=== PATIENT | female | born 1975 | race Caucasian/White ===

== ENCOUNTER 2019-02-20 12:34 | Outpatient (RCR) | payer MEDICAID, SELFPAY | END 2019-03-19 00:01 | LOC: GILAB 12:34 | PROVIDERS: Family Provider Family Medicine; Visit Provider Internal Medicine | DX: J45.50 Severe persistent asthma, uncomplicated (principal) | CPT/HCPCS: 96372 ×6; G0463; J2357 ×3 ==

== ENCOUNTER 2019-04-23 12:38 | Outpatient (RCR) | payer MEDICAID, SELFPAY ==
[2019-04-04 12:37] VITALS: BP 148/75; PULSE 73; RESP 18; TEMP 36.5; O2SAT 97; BMI 44.9
[2019-04-04] MEDS: omalizumab 150 mg SDV 300 MG SUBCUT (12:47)
[2019-04-23 12:46] VITALS: BP 171/78; PULSE 74; RESP 18; TEMP 36.9; O2SAT 97
[2019-04-23] MEDS: omalizumab 150 mg SDV 300 MG SUBCUT (12:47)
[2019-05-08] MEDS: omalizumab 150 mg SDV 300 MG SUBCUT (12:54)
[2019-05-08 13:00] VITALS: BP 152/72; PULSE 81; RESP 20; TEMP 36.8; O2SAT 97
== END 2019-05-18 23:59 | disposition home or self-care (01) ==
LOC: GILAB 12:38
PROVIDERS: Family Provider Family Medicine; PCP Family Medicine; Visit Provider Internal Medicine
DX: J45.40 Moderate persistent asthma, uncomplicated (principal)
CPT/HCPCS: 96372; J2357

== ENCOUNTER 2019-05-24 12:48 | Outpatient (CLI) | payer MEDICAID, SELFPAY ==
--- NOTE | 2019-05-24 13:20 | PFTS_ITS ---
Date of Study:05/24/2019 Date of Dictation: MECHANICS: Forced vital capacity (FVC) is normal. Forced expiratory volume in one second (FEV1) is normal. FEV1/FVC is normal. FLOW VOLUME LOOP: Normal. LUNG VOLUMES: Total lung capacity (TLC) is normal. Residual volume (RV) is normal. DIFFUSING CAPACITY FOR CARBON MONOXIDE: Normal. INTERPRETATION: The pulmonary function tests are normal. The presence of normal inspiratory capacity in the setting of significantly reduced expiratory reserve volume is suggestive of obesity related changes. Gas exchange (DLCO) is normal. MTDD
== END 2019-05-24 12:49 | disposition home or self-care (01) ==
LOC: RT 12:49
PROVIDERS: Family Provider Family Medicine; PCP Family Medicine; Visit Provider Internal Medicine
DX: J45.50 Severe persistent asthma, uncomplicated (principal)
CPT/HCPCS: 94010; 94726; 94729

== ENCOUNTER 2019-06-05 02:08 | Outpatient (RCR) | payer MEDICAID, SELFPAY ==
[2019-05-24] MEDS: omalizumab 150 mg SDV 300 MG SUBCUT (13:28)
--- NOTE | 2019-05-24 13:30 | PC.NURSE ---
administered 150mg of xolair sq to right and left upper arm. total of 300mg administered.
[2019-05-24 13:33] VITALS: BP 147/91; PULSE 73; RESP 18; TEMP 37.3; O2SAT 98
[2019-06-05 14:12] VITALS: BP 172/81; PULSE 96; RESP 20; TEMP 36.2; O2SAT 97; BMI 44.9
[2019-06-05] MEDS: omalizumab 150 mg SDV 300 MG SUBCUT (14:30)
--- NOTE | 2019-06-05 14:33 | PC.NURSE ---
xolair injection given sub q to right and left upper arms
== END 2019-06-18 23:59 | disposition home or self-care (01) ==
LOC: GILAB 02:08
PROVIDERS: Family Provider Family Medicine; PCP Family Medicine; Visit Provider Internal Medicine
DX: J45.40 Moderate persistent asthma, uncomplicated (principal)
CPT/HCPCS: 80076; 81001; 82306; 82565; 82570; 84156; 85651; 86140; 86160; 86431; 86480; 87077; 87086; 87186; 96372; G0463; J2357

== ENCOUNTER → 2019-06-05 15:53 | Outpatient (BNVA) | payer MEDICAID, SELFPAY | PROVIDERS: Family Provider Family Medicine; PCP Family Medicine; Visit Provider Internal Medicine Rheumatology | DX: M32.9 Systemic lupus erythematosus, unspecified (principal); Z79.899 Other long term (current) drug therapy; M19.90 Unspecified osteoarthritis, unspecified site; M32.19 Other organ or system involvement in systemic lupus erythematosus; R76.8 Other specified abnormal immunological findings in serum; M35.9 Systemic involvement of connective tissue, unspecified; I73.00 Raynaud's syndrome without gangrene; Z71.89 Other specified counseling | CPT/HCPCS: 85025 ==

== ENCOUNTER 2019-06-19 13:02 | Outpatient (CLI) | payer MEDICAID, SELFPAY ==
[2019-06-19 13:10] VITALS: BP 140/91; PULSE 78; RESP 16; TEMP 36.9; O2SAT 98
[2019-06-19] MEDS: omalizumab 150 mg SDV 300 MG SUBCUT (13:27)
[2019-06-19 13:30] VITALS: BP 138/73; TEMP 36.6; O2SAT 98
== END 2019-06-19 13:03 | disposition home or self-care (01) ==
LOC: RHEOACUTE 13:02
PROVIDERS: Family Provider Family Medicine; PCP Family Medicine; Visit Provider Internal Medicine Rheumatology
DX: J45.40 Moderate persistent asthma, uncomplicated (principal)
CPT/HCPCS: 96372; J2357

== ENCOUNTER 2019-07-03 12:36 | Outpatient (CLI) | payer MEDICAID, SELFPAY ==
[2019-07-03 12:49] VITALS: BP 124/75; PULSE 86; RESP 18; TEMP 36.9; O2SAT 98
[2019-07-03] MEDS: omalizumab 150 mg SDV 300 MG SUBCUT (12:58)
[2019-07-03 13:00] VITALS: BP 132/85; PULSE 85; RESP 16; TEMP 36.8; O2SAT 98
== END 2019-07-03 12:37 | disposition home or self-care (01) ==
LOC: RHEOACUTE 12:37
PROVIDERS: Family Provider Family Medicine; PCP Family Medicine; Visit Provider Internal Medicine Rheumatology
DX: J45.50 Severe persistent asthma, uncomplicated (principal)
CPT/HCPCS: 96372; J2357

== ENCOUNTER 2019-07-19 10:49 | Outpatient (CLI) | payer MEDICAID, SELFPAY ==
[2019-07-19 10:54] VITALS: BP 138/86; PULSE 76; TEMP 36.7; O2SAT 98
[2019-07-19] MEDS: omalizumab 150 mg SDV 300 MG SUBCUT (11:01)
[2019-07-19 11:03] VITALS: BP 134/87; PULSE 89; RESP 16
--- NOTE | 2019-07-19 11:04 | PC.NURSE ---
A&O x 4. Denies illness, cough, rash, or wounds. States no changes since last visit.
== END 2019-07-19 10:50 | disposition home or self-care (01) ==
LOC: RHEOACUTE 10:49
PROVIDERS: Family Provider Family Medicine; PCP Family Medicine; Visit Provider Internal Medicine
DX: J45.40 Moderate persistent asthma, uncomplicated (principal)
CPT/HCPCS: 96372; J2357

== ENCOUNTER 2019-08-02 09:53 | Outpatient (CLI) | payer MEDICAID, SELFPAY ==
[2019-08-02 09:30] VITALS: BP 171/102; PULSE 69; RESP 18; TEMP 36.3; O2SAT 98
[2019-08-02] MEDS: omalizumab 150 mg SDV 300 MG SUBCUT (10:40)
== END 2019-08-02 09:54 | disposition home or self-care (01) ==
LOC: OPS 09:55
PROVIDERS: PCP Family Medicine; Visit Provider Internal Medicine
DX: J45.40 Moderate persistent asthma, uncomplicated (principal)
CPT/HCPCS: 96372; J2357

== ENCOUNTER 2019-08-16 11:25 | Outpatient (CLI) | payer MEDICAID, SELFPAY ==
[2019-08-16 11:30] VITALS: BP 180/95; PULSE 71; RESP 18; TEMP 36.3; O2SAT 97
[2019-08-16] MEDS: omalizumab 150 mg SDV 300 MG SUBCUT (11:45)
== END 2019-08-16 11:26 | disposition home or self-care (01) ==
LOC: GILAB 11:28
PROVIDERS: PCP Family Medicine; Visit Provider Student in an Organized Health Care Education/Training Program
DX: J45.40 Moderate persistent asthma, uncomplicated (principal)
CPT/HCPCS: 96372; J2357

== ENCOUNTER 2019-09-11 08:53 | Outpatient (CLI) | payer MEDICAID, SELFPAY ==
[2019-09-11 10:30] VITALS: BP 148/90; PULSE 69; RESP 18; TEMP 36.7; O2SAT 98
[2019-09-11] MEDS: omalizumab 150 mg SDV SUBCUT (10:32)
== END 2019-09-11 08:54 | disposition home or self-care (01) ==
PROVIDERS: PCP Family Medicine; Visit Provider Student in an Organized Health Care Education/Training Program
DX: J45.50 Severe persistent asthma, uncomplicated (principal); J47.9 Bronchiectasis, uncomplicated
CPT/HCPCS: 96372; J2357

== ENCOUNTER 2019-09-25 12:54 | Outpatient (CLI) | payer MEDICAID, SELFPAY ==
[2019-09-25 13:23] VITALS: BP 137/80; PULSE 88; RESP 18; TEMP 37.3; O2SAT 96; BMI 44.9
[2019-09-25] MEDS: omalizumab 150 mg SDV 300 MG SUBCUT (13:27)
[2019-09-25 13:29] LABS: Basophils % 0.4 %; Eosinophils # 0.2 10^3/uL (0.0-0.8); Eosinophils % 2.2 %; Hemoglobin 12.9 g/dL (11.5-15.3); Lymphocytes # 1.9 10^3/uL (0.8-4.8); Lymphocytes % 26.8 %; Mean Corpuscular HGB Conc 30.7 g/dL (30.0-36.0); Mean Corpuscular Hemoglobin 26.2 pg (28.0-34.0); Mean Corpuscular Volume 85.4 fL (81-99); Mean Platelet Volume 9.3 fL (7.4-10.4); Monocytes # 0.4 10^3/uL (0.2-0.9); Monocytes % 5.3 %; Neutrophils # 4.65 10^3/uL (1.8-7.7); Neutrophils % 65.2 %; Nucleated Red Blood Cells % 0 %; Platelet Count 338 10^3/cmm (130-400); Red Blood Count 4.92 10^6/uL (4.1-5.3); Red Cell Distribution Width 12.5 % (12.1-15.1); White Blood Count 7.1 10^3/uL (4.0-10.0)
[2019-09-25 14:00] LABS: Bilirubin Urine Neg (NEGATIVE); Blood Urine Neg (Negative); Glucose Urine UA Norm (Normal); Ketones Urine Negative (Negative); Leukocyte Esterase Urine Negative (Negative); Nitrate Urine Negative (Negative); Protein Urine Neg (Negative); Urine Appearance Clear (CLEAR); Urine Color Yellow (Yellow); Urobilinogen Urine Norm (Negative); pH Urine 5 (5-7)
[2019-09-25 14:01] LABS: Add Urine Culture? No; Bacteria Urine TRACE
[2019-09-25 14:11] LABS: Urine Creatinine 57 mg/dL (28-217); Urine Protein Random 4 mg/dL
[2019-09-25 15:53] LABS: Erythrocyte Sedimentation Rate 27 mm/hr (0-15)
[2019-09-25 23:47] LABS: Alanine Aminotransferase 14 U/L (0-33); Albumin Level 4.5 g/dL (3.5-5.2); Alkaline Phosphatase 82 IU/L (35-105); Aspartate Amino Transferase 14 U/L (0-32); Complement C3 144 mg/dL (90-180); Globulin 2.6 g/dL (1.3-4.6); Glomerular Filtration Rate 78.7 mL/min (90-130); Total Bilirubin 0.2 mg/dL (0.15-1.2); Total Protein 7.1 g/dL (6.6-8.7)
== END 2019-09-25 12:55 | disposition home or self-care (01) ==
PROVIDERS: Internal Medicine Rheumatology; PCP Family Medicine; Visit Provider Student in an Organized Health Care Education/Training Program
DX: J45.50 Severe persistent asthma, uncomplicated (principal); J47.9 Bronchiectasis, uncomplicated
CPT/HCPCS: 36415; 80076; 81001; 82565; 82570; 84156; 85025; 85651; 86140; 86160; 96372

== ENCOUNTER 2019-10-09 11:34 | Outpatient (CLI) | payer MEDICAID, SELFPAY ==
[2019-10-09 13:58] VITALS: BP 134/80; PULSE 72; RESP 18; TEMP 36.2; O2SAT 97
[2019-10-09] MEDS: omalizumab 150 mg SDV 300 MG SUBCUT (13:59)
== END 2019-10-09 11:35 | disposition home or self-care (01) ==
PROVIDERS: PCP Family Medicine; Visit Provider Student in an Organized Health Care Education/Training Program
DX: J45.50 Severe persistent asthma, uncomplicated (principal); J47.9 Bronchiectasis, uncomplicated; M32.19 Other organ or system involvement in systemic lupus erythematosus; Z79.899 Other long term (current) drug therapy; R76.8 Other specified abnormal immunological findings in serum; I73.00 Raynaud's syndrome without gangrene; M19.90 Unspecified osteoarthritis, unspecified site; F17.210 Nicotine dependence, cigarettes, uncomplicated; E55.9 Vitamin D deficiency, unspecified
CPT/HCPCS: 96372; 99214; J2357

== ENCOUNTER 2019-10-23 12:42 | Outpatient (RCR) | payer MEDICAID, SELFPAY ==
[2019-10-23 12:45] VITALS: BP 153/102; PULSE 72; RESP 18; TEMP 36.3; O2SAT 98
[2019-10-23] MEDS: omalizumab 150 mg SDV 300 MG SUBCUT (12:56)
[2019-11-06] MEDS: omalizumab 150 mg SDV 300 MG SUBCUT (12:59)
[2019-11-06 13:45] VITALS: BP 167/91; PULSE 72; RESP 18; TEMP 36.3; O2SAT 98
== END 2019-11-18 23:59 | disposition home or self-care (01) ==
LOC: GILAB 12:42
PROVIDERS: PCP Family Medicine; Visit Provider Internal Medicine Pulmonary Disease
DX: J45.50 Severe persistent asthma, uncomplicated (principal); J47.9 Bronchiectasis, uncomplicated
CPT/HCPCS: 96372; J2357

== ENCOUNTER → 2019-11-06 12:46 | Day surgery (SDC) | payer MEDICAID, SELFPAY | PROVIDERS: PCP Family Medicine; Visit Provider Internal Medicine Pulmonary Disease | DX: J45.50 Severe persistent asthma, uncomplicated (principal); J47.9 Bronchiectasis, uncomplicated | CPT/HCPCS: 96372 ==

== ENCOUNTER 2019-12-18 12:58 | Outpatient (RCR) | payer MEDICAID, SELFPAY ==
[2019-11-20] MEDS: omalizumab 150 mg SDV 300 MG SUBCUT (13:06)
[2019-11-20 13:07] VITALS: BP 145/77; PULSE 74; RESP 18; TEMP 37.5; O2SAT 97
[2019-12-04] MEDS: omalizumab 150 mg SDV 300 MG SUBCUT (13:03)
[2019-12-04 13:04] VITALS: BP 152/81; PULSE 70; RESP 18; TEMP 37.5; O2SAT 97
[2019-12-18] MEDS: omalizumab 150 mg SDV 300 MG SUBCUT (13:00)
[2019-12-18 13:19] VITALS: BP 143/84; PULSE 79; RESP 18; TEMP 35.9; O2SAT 98
== END 2019-12-18 23:59 | disposition home or self-care (01) ==
LOC: GILAB 12:58
PROVIDERS: PCP Family Medicine; Visit Provider Internal Medicine
DX: J45.50 Severe persistent asthma, uncomplicated (principal); J47.9 Bronchiectasis, uncomplicated
CPT/HCPCS: 96372; J2357

== ENCOUNTER 2020-01-15 13:07 | Outpatient (RCR) | payer MEDICAID, SELFPAY ==
[2020-01-01] MEDS: omalizumab 150 mg SDV 300 MG SUBCUT (14:25)
[2020-01-01 15:11] VITALS: BP 155/78; PULSE 73; RESP 18; TEMP 36.2; O2SAT 98
[2020-01-15] MEDS: omalizumab 150 mg SDV 300 MG SUBCUT (13:15)
[2020-01-15 13:20] VITALS: BP 178/74; PULSE 77; RESP 18; TEMP 36.8; O2SAT 97
== END 2020-01-18 23:59 | disposition home or self-care (01) ==
LOC: OPS 13:07
PROVIDERS: PCP Family Medicine; Visit Provider Physician Assistant Medical
DX: J45.50 Severe persistent asthma, uncomplicated (principal); J47.9 Bronchiectasis, uncomplicated
CPT/HCPCS: 96372; J2357

== ENCOUNTER → 2020-01-31 10:03 | Day surgery (SDC) | payer MEDICAID, SELFPAY ==
[2020-01-31] MEDS: omalizumab 150 mg SDV 300 MG SUBCUT (17:42)
== END ==
PROVIDERS: PCP Family Medicine; Visit Provider Internal Medicine
DX: J45.50 Severe persistent asthma, uncomplicated (principal)
CPT/HCPCS: 96372; J2357

== ENCOUNTER → 2020-02-04 15:11 | Outpatient (BNVA) | payer MEDICAID, SELFPAY | PROVIDERS: PCP Family Medicine; Visit Provider Internal Medicine Rheumatology | DX: M32.19 Other organ or system involvement in systemic lupus erythematosus (principal); M19.90 Unspecified osteoarthritis, unspecified site; I73.00 Raynaud's syndrome without gangrene; R76.8 Other specified abnormal immunological findings in serum; Z79.899 Other long term (current) drug therapy; E55.9 Vitamin D deficiency, unspecified; J45.909 Unspecified asthma, uncomplicated; K21.9 Gastro-esophageal reflux disease without esophagitis; Z90.5 Acquired absence of kidney; F17.210 Nicotine dependence, cigarettes, uncomplicated | CPT/HCPCS: 99214 ==

== ENCOUNTER → 2020-02-21 13:39 | Day surgery (SDC) | payer MEDICAID, SELFPAY ==
[2020-02-21 14:20] VITALS: BP 141/86; PULSE 75; RESP 16; TEMP 36.8; O2SAT 97
[2020-02-21] MEDS: omalizumab 150 mg SDV 300 MG SUBCUT (14:25)
[2020-02-21 14:39] LABS: Basophils % 0.3 %; Eosinophils # 0.1 10^3/uL (0.0-0.8); Hematocrit 38.2 % (37.0-47.0); Hemoglobin 12.3 g/dL (11.5-15.3); Lymphocytes # 1.9 10^3/uL (0.8-4.8); Lymphocytes % 22.2 %; Mean Corpuscular HGB Conc 32.2 g/dL (30.0-36.0); Mean Corpuscular Hemoglobin 26.9 pg (28.0-34.0); Mean Corpuscular Volume 83.4 fL (81-99); Mean Platelet Volume 8.9 fL (7.4-10.4); Monocytes # 0.5 10^3/uL (0.2-0.9); Monocytes % 5.9 %; Neutrophils # 6.03 10^3/uL (1.8-7.7); Neutrophils % 70.4 %; Nucleated Red Blood Cells % 0 %; Platelet Count 309 10^3/cmm (130-400); Red Blood Count 4.58 10^6/uL (4.1-5.3); Red Cell Distribution Width 12.8 % (12.1-15.1); White Blood Count 8.6 10^3/uL (4.0-10.0)
[2020-02-21 14:57] LABS: Alanine Aminotransferase 17 U/L (0-33); Albumin Level 3.8 g/dL (3.5-5.2); Alkaline Phosphatase 89 IU/L (35-105); Aspartate Amino Transferase 14 U/L (0-32); C Reactive Protein 6.1 mg/L (0.0-4.9); Globulin 2.7 g/dL (1.3-4.6); Glomerular Filtration Rate 91.8 mL/min (90-130); Total Bilirubin 0.2 mg/dL (0.15-1.2); Total Protein 6.5 g/dL (6.6-8.7)
[2020-02-21 15:23] LABS: Bilirubin Urine Neg (Negative); Blood Urine Neg (Negative); Glucose Urine UA Norm (Normal); Ketones Urine Negative (Negative); Leukocyte Esterase Urine Negative (Negative); Nitrate Urine Negative (Negative); Protein Urine Neg (Negative); Specific Gravity, Urine 1.005 (1.005-1.030); Urine Appearance SL Hazy (CLEAR); Urine Color Yellow (Yellow); Urobilinogen Urine Norm (Negative); pH Urine 7 (5-7)
[2020-02-21 15:52] LABS: Urine Creatinine 88 mg/dL (28-217); Urine Protein Random 6 mg/dL
[2020-02-21 16:06] LABS: Add Urine Culture? No; Bacteria Urine 1+ /hpf; RBC Urine 15-25 /hpf (0-2); Squamous Epithelial Cell Urine 0-4 /hpf (0-5)
[2020-02-21 18:07] LABS: Erythrocyte Sedimentation Rate 21 mm/hr (0-15)
== END ==
PROVIDERS: Internal Medicine Rheumatology; PCP Family Medicine; Visit Provider Internal Medicine
DX: J45.40 Moderate persistent asthma, uncomplicated (principal)
CPT/HCPCS: 36415; 80076; 81001; 82565; 82570; 84156; 85025; 85651; 86140; 96372; J2357

== ENCOUNTER → 2020-03-06 08:12 | Day surgery (SDC) | payer MEDICAID, SELFPAY ==
[2020-03-06] MEDS: omalizumab 150 mg SDV 300 MG SUBCUT (08:30)
[2020-03-06 08:31] VITALS: BP 142/87; PULSE 77; RESP 18; TEMP 36.8; O2SAT 97
== END ==
PROVIDERS: PCP Family Medicine; Visit Provider Internal Medicine
DX: J45.50 Severe persistent asthma, uncomplicated (principal)
CPT/HCPCS: 96372; J2357

== ENCOUNTER 2020-03-20 09:26 | Outpatient (CLI) | payer MEDICAID, SELFPAY ==
[2020-03-20 09:59] VITALS: BP 125/84; PULSE 83; RESP 18; TEMP 36.2; O2SAT 98; BMI 34.7
[2020-03-20] MEDS: omalizumab 150 mg SDV 300 MG SUBCUT (10:05)
== END 2020-03-20 09:27 | disposition home or self-care (01) ==
PROVIDERS: PCP Family Medicine; Visit Provider Internal Medicine
DX: J45.50 Severe persistent asthma, uncomplicated (principal)
CPT/HCPCS: 96372; 96375; J2357

== ENCOUNTER → 2020-04-08 12:49 | Day surgery (SDC) | payer MEDICAID, SELFPAY ==
[2020-04-08 13:25] VITALS: BP 152/89; PULSE 68; RESP 18; TEMP 36.9; O2SAT 98; BMI 44.4
[2020-04-08] MEDS: omalizumab 150 mg SDV 300 MG SUBCUT (13:42)
--- NOTE | 2020-04-08 13:43 | SUR.PREOP ---
Subcutaneous injection give to each outer arm. right and left
== END ==
PROVIDERS: PCP Family Medicine; Visit Provider Internal Medicine
DX: J45.50 Severe persistent asthma, uncomplicated (principal); J47.9 Bronchiectasis, uncomplicated
CPT/HCPCS: 96372; J2357

== ENCOUNTER → 2020-04-24 09:46 | Day surgery (SDC) | payer MEDICAID, SELFPAY ==
[2020-04-24 11:20] VITALS: BP 138/99; PULSE 72; RESP 18; TEMP 36.8; O2SAT 98
[2020-04-24] MEDS: omalizumab 150 mg SDV 300 MG SUBCUT (11:28)
== END ==
PROVIDERS: PCP Family Medicine; Visit Provider Internal Medicine
DX: J45.50 Severe persistent asthma, uncomplicated (principal); J47.9 Bronchiectasis, uncomplicated
CPT/HCPCS: 96372; J2357

== ENCOUNTER → 2020-05-08 08:53 | Day surgery (SDC) | payer MEDICAID, SELFPAY ==
[2020-05-08 09:11] VITALS: BP 159/76; PULSE 73; RESP 18; TEMP 36.3; O2SAT 96
[2020-05-08] MEDS: omalizumab 150 mg SDV 300 MG SUBCUT (09:12)
== END ==
PROVIDERS: PCP Family Medicine; Visit Provider Internal Medicine
DX: J45.50 Severe persistent asthma, uncomplicated (principal); J47.9 Bronchiectasis, uncomplicated
CPT/HCPCS: 96372; J2357

== ENCOUNTER → 2020-05-22 09:03 | Day surgery (SDC) | payer MEDICAID, SELFPAY ==
[2020-05-22] MEDS: omalizumab 150 mg SDV 300 MG SUBCUT (09:22)
[2020-05-22 09:33] VITALS: BP 157/73; PULSE 70; RESP 18; TEMP 36.6; O2SAT 98
== END ==
PROVIDERS: PCP Family Medicine; Visit Provider Internal Medicine
DX: J45.50 Severe persistent asthma, uncomplicated (principal)
CPT/HCPCS: 96372; J2357

== ENCOUNTER → 2020-06-05 09:10 | Day surgery (SDC) | payer MEDICAID, SELFPAY ==
[2020-06-05 09:38] VITALS: BP 144/90; PULSE 65; RESP 18; TEMP 36.8; O2SAT 97
[2020-06-05] MEDS: omalizumab 150 mg SDV 300 MG SUBCUT (09:40)
== END ==
PROVIDERS: PCP Family Medicine; Visit Provider Internal Medicine
DX: J45.50 Severe persistent asthma, uncomplicated (principal); J47.9 Bronchiectasis, uncomplicated
CPT/HCPCS: 96372; J2357

== ENCOUNTER → 2020-06-19 09:56 | Day surgery (SDC) | payer MEDICAID, SELFPAY ==
[2020-06-19] MEDS: omalizumab 150 mg SDV 300 MG SUBCUT (10:08)
[2020-06-19 10:32] VITALS: BP 167/92; PULSE 75; RESP 18; TEMP 36.3; O2SAT 98
== END ==
PROVIDERS: PCP Family Medicine; Visit Provider Internal Medicine
DX: J45.50 Severe persistent asthma, uncomplicated (principal); J47.9 Bronchiectasis, uncomplicated
CPT/HCPCS: 96372; J2357

== ENCOUNTER → 2020-07-03 10:01 | Day surgery (SDC) | payer MEDICAID, SELFPAY ==
[2020-07-03] MEDS: omalizumab 150 mg SDV 300 MG SUBCUT (10:20)
== END ==
PROVIDERS: PCP Family Medicine; Visit Provider Internal Medicine
DX: J45.50 Severe persistent asthma, uncomplicated (principal); J47.9 Bronchiectasis, uncomplicated
CPT/HCPCS: 96372; J2357

== ENCOUNTER → 2020-07-17 09:51 | Day surgery (SDC) | payer MEDICAID, SELFPAY ==
[2020-07-17] MEDS: omalizumab 150 mg SDV 300 MG SUBCUT (10:00)
[2020-07-17 10:03] VITALS: BP 171/97; PULSE 68; RESP 18; TEMP 36.8; O2SAT 97
== END ==
PROVIDERS: PCP Family Medicine; Visit Provider Internal Medicine
DX: J45.50 Severe persistent asthma, uncomplicated (principal); J47.9 Bronchiectasis, uncomplicated
CPT/HCPCS: 96372; J2357

== ENCOUNTER → 2020-07-31 09:18 | Day surgery (SDC) | payer MEDICAID, SELFPAY ==
[2020-07-31 09:20] VITALS: BP 174/95; PULSE 87; RESP 18; TEMP 36.6; O2SAT 97
[2020-07-31] MEDS: omalizumab 150 mg SDV 300 MG SUBCUT (09:23)
== END ==
PROVIDERS: PCP Family Medicine; Visit Provider Internal Medicine
DX: J45.50 Severe persistent asthma, uncomplicated (principal)
CPT/HCPCS: 96372; J2357

== ENCOUNTER → 2020-08-14 09:11 | Day surgery (SDC) | payer MEDICAID, SELFPAY ==
[2020-08-14] MEDS: omalizumab 150 mg SDV 300 MG SUBCUT (09:35)
[2020-08-14 10:10] VITALS: BP 153/88; PULSE 78; RESP 18; O2SAT 96
== END ==
PROVIDERS: PCP Family Medicine; Visit Provider Internal Medicine
DX: J45.50 Severe persistent asthma, uncomplicated (principal); J47.9 Bronchiectasis, uncomplicated
CPT/HCPCS: 96372; J2357

== ENCOUNTER → 2020-08-28 08:44 | Day surgery (SDC) | payer MEDICAID, SELFPAY ==
[2020-08-28 09:08] VITALS: BP 128/76; PULSE 77; RESP 18; TEMP 37.1; O2SAT 97
[2020-08-28] MEDS: omalizumab 150 mg SDV 300 MG SUBCUT (09:08)
== END ==
PROVIDERS: PCP Family Medicine; Visit Provider Internal Medicine
DX: J45.50 Severe persistent asthma, uncomplicated (principal)
CPT/HCPCS: 96372; J2357

== ENCOUNTER → 2020-09-11 08:51 | Day surgery (SDC) | payer MEDICAID, SELFPAY ==
[2020-09-11 09:08] VITALS: BP 161/96; PULSE 68; RESP 18; TEMP 36.7; O2SAT 98
[2020-09-11] MEDS: omalizumab 150 mg SDV SUBCUT ×2 (09:31)
== END ==
PROVIDERS: PCP Family Medicine; Visit Provider Internal Medicine
DX: J45.50 Severe persistent asthma, uncomplicated (principal)
CPT/HCPCS: 96372; J2357

== ENCOUNTER → 2020-09-25 08:46 | Day surgery (SDC) | payer MEDICAID, SELFPAY ==
[2020-09-25 08:55] VITALS: BP 165/94; PULSE 68; RESP 18; TEMP 36; O2SAT 97
[2020-09-25] MEDS: omalizumab 150 mg SDV SUBCUT ×2 (08:57)
== END ==
PROVIDERS: PCP Family Medicine; Visit Provider Internal Medicine
DX: J45.50 Severe persistent asthma, uncomplicated (principal)
CPT/HCPCS: 96372; J2357

== ENCOUNTER → 2020-10-09 08:56 | Day surgery (SDC) | payer MEDICAID, SELFPAY ==
[2020-10-09] MEDS: omalizumab 150 mg SDV SUBCUT ×2 (09:04)
[2020-10-09 09:09] VITALS: BMI 43.5
[2020-10-09 09:10] VITALS: BP 157/87; PULSE 67; RESP 18; TEMP 37.2; O2SAT 98
== END ==
PROVIDERS: PCP Family Medicine; Visit Provider Internal Medicine
DX: J45.50 Severe persistent asthma, uncomplicated (principal)
CPT/HCPCS: 96372; J2357

== ENCOUNTER → 2020-10-23 09:00 | Day surgery (SDC) | payer MEDICAID, SELFPAY ==
[2020-10-23 09:13] VITALS: BP 155/91; PULSE 79; RESP 18; TEMP 36.7; O2SAT 99
[2020-10-23] MEDS: omalizumab 150 mg SDV SUBCUT ×2 (09:40)
== END ==
PROVIDERS: PCP Family Medicine; Visit Provider Internal Medicine
DX: J45.50 Severe persistent asthma, uncomplicated (principal)
CPT/HCPCS: 96372; J2357

== ENCOUNTER → 2020-11-06 09:22 | Day surgery (SDC) | payer MEDICAID, SELFPAY ==
[2020-11-06 09:25] VITALS: BP 171/105; PULSE 74; RESP 18; TEMP 37.1; O2SAT 98
[2020-11-06] MEDS: omalizumab 150 mg SDV SUBCUT ×2 (09:27→09:28)
== END ==
PROVIDERS: PCP Family Medicine; Visit Provider Internal Medicine
DX: J45.50 Severe persistent asthma, uncomplicated (principal)
CPT/HCPCS: 96372; J2357

== ENCOUNTER → 2020-11-20 08:59 | Day surgery (SDC) | payer MEDICAID, SELFPAY ==
[2020-11-20 09:10] VITALS: BP 179/85; PULSE 62; RESP 18; TEMP 36.4; O2SAT 98
[2020-11-20] MEDS: omalizumab 150 mg SDV SUBCUT ×2 (09:16)
== END ==
PROVIDERS: PCP Family Medicine; Visit Provider Internal Medicine
DX: J45.50 Severe persistent asthma, uncomplicated (principal)
CPT/HCPCS: 96372; J2357

== ENCOUNTER → 2020-12-04 09:00 | Day surgery (SDC) | payer MEDICAID, SELFPAY ==
[2020-12-04 09:05] VITALS: BP 162/86; PULSE 70; RESP 18; TEMP 36.2; O2SAT 98
[2020-12-04] MEDS: omalizumab 150 mg SDV SUBCUT ×2 (09:10→09:11)
== END ==
PROVIDERS: PCP Family Medicine; Visit Provider Internal Medicine
DX: J45.50 Severe persistent asthma, uncomplicated (principal)
CPT/HCPCS: 96372; J2357

== ENCOUNTER → 2020-12-18 08:46 | Day surgery (SDC) | payer MEDICAID, SELFPAY ==
[2020-12-18 08:57] VITALS: BMI 41.9
[2020-12-18] MEDS: omalizumab 150 mg SDV SUBCUT ×2 (09:00)
[2020-12-18 09:09] VITALS: BP 153/89; PULSE 67; RESP 18; TEMP 36.7; O2SAT 98
== END ==
PROVIDERS: PCP Family Medicine; Visit Provider Internal Medicine
DX: J45.50 Severe persistent asthma, uncomplicated (principal)
CPT/HCPCS: 96372; J2357

== ENCOUNTER → 2021-01-01 08:39 | Day surgery (SDC) | payer MEDICAID, SELFPAY ==
[2021-01-01 09:00] VITALS: BP 145/75; PULSE 68; RESP 18; TEMP 36.4; O2SAT 97
[2021-01-01] MEDS: omalizumab 150 mg SDV SUBCUT ×2 (09:06→09:07)
== END ==
PROVIDERS: PCP Family Medicine; Visit Provider Internal Medicine
DX: J45.50 Severe persistent asthma, uncomplicated (principal)
CPT/HCPCS: 96372; J2357

== ENCOUNTER → 2021-01-15 08:37 | Day surgery (SDC) | payer MEDICAID, SELFPAY ==
[2021-01-15 08:45] VITALS: BP 143/80; PULSE 78; RESP 18; TEMP 36.4; O2SAT 97
[2021-01-15] MEDS: omalizumab 150 mg SDV SUBCUT ×2 (08:45)
== END ==
PROVIDERS: PCP Family Medicine; Visit Provider Internal Medicine
DX: J45.50 Severe persistent asthma, uncomplicated (principal)
CPT/HCPCS: 96372; J2357

== ENCOUNTER → 2021-01-29 08:32 | Day surgery (SDC) | payer MEDICAID, SELFPAY ==
[2021-01-29 08:47] VITALS: BP 150/88; PULSE 78; RESP 18; TEMP 36.8; O2SAT 97; BMI 41.9
[2021-01-29] MEDS: omalizumab 150 mg SDV SUBCUT ×2 (09:00→09:01)
== END ==
PROVIDERS: PCP Family Medicine; Visit Provider Internal Medicine
DX: J45.50 Severe persistent asthma, uncomplicated (principal)
CPT/HCPCS: 96372; J2357

== ENCOUNTER → 2021-02-15 12:16 | Day surgery (SDC) | payer MEDICAID, SELFPAY ==
[2021-02-15 12:25] VITALS: BP 122/99; PULSE 70; RESP 18; TEMP 36.1; O2SAT 97
[2021-02-15] MEDS: omalizumab 150 mg SDV SUBCUT ×2 (12:28→12:29)
== END ==
PROVIDERS: PCP Family Medicine; Visit Provider Internal Medicine
DX: J45.50 Severe persistent asthma, uncomplicated (principal)
CPT/HCPCS: 96372; J2357

== ENCOUNTER → 2021-02-26 09:05 | Day surgery (SDC) | payer MEDICAID, SELFPAY ==
[2021-02-26 09:09] VITALS: BP 168/84; PULSE 70; RESP 18; TEMP 36.6; O2SAT 98
[2021-02-26] MEDS: omalizumab 150 mg/mL SYR SUBCUT ×2 (09:12→09:13)
== END ==
PROVIDERS: PCP Family Medicine; Visit Provider Internal Medicine
DX: J45.50 Severe persistent asthma, uncomplicated (principal)
CPT/HCPCS: 96372; J2357

== ENCOUNTER → 2021-03-11 12:32 | Day surgery (SDC) | payer MEDICAID, SELFPAY ==
[2021-03-11 12:37] VITALS: BP 132/80; PULSE 73; RESP 18; TEMP 36.8; O2SAT 97; BMI 41.9
[2021-03-11] MEDS: omalizumab 150 mg/mL SYR SUBCUT ×2 (12:39→12:40)
== END ==
PROVIDERS: PCP Family Medicine; Visit Provider Internal Medicine
DX: J45.50 Severe persistent asthma, uncomplicated (principal)
CPT/HCPCS: 96372; J2357

== ENCOUNTER → 2021-03-29 13:20 | Day surgery (SDC) | payer MEDICAID, SELFPAY ==
[2021-03-29] MEDS: omalizumab 150 mg/mL SYR SUBCUT ×2 (13:28)
[2021-03-29 13:30] VITALS: BP 152/79; PULSE 71; RESP 18; TEMP 37.3; O2SAT 98
== END ==
PROVIDERS: PCP Family Medicine; Visit Provider Internal Medicine
DX: M32.19 Other organ or system involvement in systemic lupus erythematosus (principal); R30.0 Dysuria
CPT/HCPCS: 96372; J2357

== ENCOUNTER → 2021-04-09 08:25 | Day surgery (SDC) | payer MEDICAID, SELFPAY ==
[2021-04-09 08:30] VITALS: BP 157/91; PULSE 73; RESP 18; TEMP 36.4; O2SAT 97
[2021-04-09] MEDS: omalizumab 150 mg/mL SYR SUBCUT ×2 (08:34→08:35)
== END ==
PROVIDERS: PCP Family Medicine; Visit Provider Internal Medicine
DX: J45.50 Severe persistent asthma, uncomplicated (principal)
CPT/HCPCS: 96372; J2357

== ENCOUNTER → 2021-04-26 12:05 | Day surgery (SDC) | payer MEDICAID, SELFPAY ==
[2021-04-26 12:10] VITALS: BP 167/92; PULSE 73; RESP 18; TEMP 36.1; O2SAT 98
[2021-04-26] MEDS: omalizumab 150 mg/mL SYR SUBCUT ×2 (12:12)
== END ==
PROVIDERS: PCP Family Medicine; Visit Provider Internal Medicine
DX: J45.50 Severe persistent asthma, uncomplicated (principal)
CPT/HCPCS: 96372; J2357

== ENCOUNTER → 2021-05-07 08:23 | Day surgery (SDC) | payer MEDICAID, SELFPAY ==
[2021-05-07 08:30] VITALS: BP 162/90; PULSE 72; RESP 18; TEMP 36.3; O2SAT 98
[2021-05-07] MEDS: omalizumab 150 mg/mL SYR SUBCUT ×2 (08:32)
== END ==
PROVIDERS: PCP Family Medicine; Visit Provider Internal Medicine
DX: J45.50 Severe persistent asthma, uncomplicated (principal)
CPT/HCPCS: 96372; J2357

== ENCOUNTER → 2021-05-21 10:00 | Day surgery (SDC) | payer MEDICAID, SELFPAY ==
[2021-05-21] MEDS: omalizumab 150 mg/mL SYR SUBCUT ×2 (10:07→10:08)
[2021-05-21 10:12] VITALS: BP 173/87; PULSE 72; RESP 18; TEMP 36.4; O2SAT 97
== END ==
PROVIDERS: PCP Family Medicine; Visit Provider Internal Medicine
DX: J45.50 Severe persistent asthma, uncomplicated (principal)
CPT/HCPCS: 96372; J2357

== ENCOUNTER → 2021-06-04 08:34 | Day surgery (SDC) | payer MEDICAID, SELFPAY ==
[2021-06-04] MEDS: omalizumab 150 mg/mL SYR SUBCUT ×2 (08:40→08:41)
[2021-06-04 08:50] VITALS: BP 168/92; PULSE 76; RESP 18; TEMP 36.2; O2SAT 98
== END ==
PROVIDERS: PCP Family Medicine; Visit Provider Internal Medicine
DX: J45.50 Severe persistent asthma, uncomplicated (principal)
CPT/HCPCS: 96372; J2357

== ENCOUNTER → 2021-06-18 08:38 | Day surgery (SDC) | payer MEDICAID, SELFPAY ==
[2021-06-18 08:45] VITALS: BP 148/79; PULSE 106; RESP 18; TEMP 36.3; O2SAT 97
[2021-06-18] MEDS: omalizumab 150 mg/mL SYR SUBCUT ×2 (08:45)
== END ==
PROVIDERS: PCP Family Medicine; Visit Provider Internal Medicine
DX: J45.50 Severe persistent asthma, uncomplicated (principal)
CPT/HCPCS: 96372; J2357

== ENCOUNTER → 2021-07-02 07:11 | Day surgery (SDC) | payer MEDICAID, SELFPAY ==
[2021-07-02 07:15] VITALS: BP 158/83; PULSE 75; RESP 18; TEMP 35.8; O2SAT 98
[2021-07-02] MEDS: omalizumab 150 mg/mL SYR SUBCUT ×2 (07:18)
== END ==
PROVIDERS: PCP Family Medicine; Visit Provider Internal Medicine
DX: J45.50 Severe persistent asthma, uncomplicated (principal)
CPT/HCPCS: 96372; J2357

== ENCOUNTER → 2021-07-16 07:21 | Day surgery (SDC) | payer MEDICAID, SELFPAY ==
[2021-07-16] MEDS: omalizumab 150 mg/mL SYR SUBCUT ×2 (07:29→07:30)
[2021-07-16 07:30] VITALS: BP 149/100; PULSE 60; RESP 18; TEMP 36.1; O2SAT 99
== END ==
PROVIDERS: PCP Family Medicine; Visit Provider Internal Medicine
DX: J45.50 Severe persistent asthma, uncomplicated (principal)
CPT/HCPCS: 96372; J2357

== ENCOUNTER → 2021-07-30 07:30 | Day surgery (SDC) | payer MEDICAID, SELFPAY ==
[2021-07-30 07:30] VITALS: BP 156/88; PULSE 78; RESP 18; TEMP 36.1; O2SAT 98
[2021-07-30] MEDS: omalizumab 150 mg/mL SYR SUBCUT ×2 (07:38→07:39)
== END ==
PROVIDERS: PCP Family Medicine; Visit Provider Internal Medicine
DX: J45.50 Severe persistent asthma, uncomplicated (principal)
CPT/HCPCS: 96372; J2357

== ENCOUNTER → 2021-08-13 07:12 | Day surgery (SDC) | payer MEDICAID, SELFPAY ==
[2021-08-13 07:10] VITALS: BP 129/88; PULSE 68; RESP 20; TEMP 36.8; O2SAT 99; BMI 42.7
[2021-08-13] MEDS: omalizumab 150 mg/mL SYR SUBCUT ×2 (07:20)
== END ==
PROVIDERS: PCP Family Medicine; Visit Provider Internal Medicine
DX: J45.50 Severe persistent asthma, uncomplicated (principal)
CPT/HCPCS: 96372; J2357

== ENCOUNTER → 2021-08-27 07:03 | Day surgery (SDC) | payer MEDICAID, SELFPAY ==
[2021-08-27] MEDS: omalizumab 150 mg/mL SYR SUBCUT ×2 (07:12)
[2021-08-27 07:20] VITALS: BP 154/78; PULSE 71; RESP 18; TEMP 36.6; O2SAT 99
== END ==
PROVIDERS: PCP Family Medicine; Visit Provider Internal Medicine
DX: J45.50 Severe persistent asthma, uncomplicated (principal)
CPT/HCPCS: 96372; J2357

== ENCOUNTER → 2021-09-09 07:10 | Day surgery (SDC) | payer MEDICAID, SELFPAY ==
[2021-09-09] MEDS: omalizumab 150 mg/mL SYR SUBCUT ×2 (07:18)
[2021-09-09 07:29] VITALS: BP 155/74; PULSE 66; RESP 18; TEMP 35.9; O2SAT 98
== END ==
PROVIDERS: PCP Family Medicine; Visit Provider Internal Medicine
DX: J45.50 Severe persistent asthma, uncomplicated (principal)
CPT/HCPCS: 96372; J2357

== ENCOUNTER → 2021-09-24 07:14 | Day surgery (SDC) | payer MEDICAID, SELFPAY ==
[2021-09-24] MEDS: omalizumab 150 mg/mL SYR SUBCUT ×2 (07:22→07:23)
[2021-09-24 07:29] VITALS: BP 146/87; PULSE 70; RESP 18; TEMP 36.1; O2SAT 99
== END ==
PROVIDERS: PCP Family Medicine; Visit Provider Internal Medicine
DX: J45.50 Severe persistent asthma, uncomplicated (principal); J44.9 Chronic obstructive pulmonary disease, unspecified
CPT/HCPCS: 96372; J2357

== ENCOUNTER → 2021-10-08 07:25 | Day surgery (SDC) | payer MEDICAID, SELFPAY ==
[2021-10-08 07:30] VITALS: BP 149/90; PULSE 72; RESP 18; TEMP 36.5; O2SAT 98
[2021-10-08] MEDS: omalizumab 150 mg/mL SYR SUBCUT ×2 (07:32)
== END ==
PROVIDERS: PCP Family Medicine; Visit Provider Internal Medicine
DX: J45.50 Severe persistent asthma, uncomplicated (principal); J44.9 Chronic obstructive pulmonary disease, unspecified
CPT/HCPCS: 96372; J2357

== ENCOUNTER → 2021-10-22 07:02 | Day surgery (SDC) | payer MEDICAID, SELFPAY ==
[2021-10-22] MEDS: omalizumab 150 mg/mL SYR SUBCUT ×2 (07:28)
[2021-10-22 07:32] VITALS: BP 130/79; PULSE 67; RESP 18; TEMP 36.4; O2SAT 98
== END ==
PROVIDERS: PCP Family Medicine; Visit Provider Internal Medicine
DX: J45.50 Severe persistent asthma, uncomplicated (principal)
CPT/HCPCS: 96372; J2357

== ENCOUNTER → 2021-11-05 07:16 | Day surgery (SDC) | payer MEDICAID, SELFPAY ==
[2021-11-05] MEDS: omalizumab 150 mg/mL SYR SUBCUT ×2 (07:23)
[2021-11-05 07:29] VITALS: BP 150/89; PULSE 69; RESP 18; TEMP 36.3; O2SAT 99
== END ==
PROVIDERS: PCP Family Medicine; Visit Provider Internal Medicine
DX: J45.50 Severe persistent asthma, uncomplicated (principal); J44.9 Chronic obstructive pulmonary disease, unspecified
CPT/HCPCS: 96372; J2357

== ENCOUNTER → 2021-11-19 07:29 | Day surgery (SDC) | payer MEDICAID, SELFPAY ==
[2021-11-19] MEDS: omalizumab 150 mg/mL SYR SUBCUT ×2 (07:35)
[2021-11-19 07:42] VITALS: BP 169/82; PULSE 96; RESP 18; TEMP 36.6; O2SAT 96
== END ==
PROVIDERS: PCP Family Medicine; Visit Provider Internal Medicine
DX: J45.50 Severe persistent asthma, uncomplicated (principal); J44.9 Chronic obstructive pulmonary disease, unspecified
CPT/HCPCS: 96372; J2357

== ENCOUNTER → 2021-12-03 07:18 | Day surgery (SDC) | payer MEDICAID, SELFPAY ==
[2021-12-03 07:20] VITALS: BP 118/81; PULSE 83; RESP 18; TEMP 36.8; O2SAT 98
[2021-12-03] MEDS: omalizumab 150 mg/mL SYR SUBCUT ×2 (07:23)
== END ==
PROVIDERS: PCP Family Medicine; Visit Provider Internal Medicine
DX: J45.50 Severe persistent asthma, uncomplicated (principal); J44.9 Chronic obstructive pulmonary disease, unspecified
CPT/HCPCS: 96372; J2357

== ENCOUNTER → 2021-12-17 07:27 | Day surgery (SDC) | payer MEDICAID, SELFPAY ==
[2021-12-17] MEDS: omalizumab 150 mg/mL SYR SUBCUT ×2 (07:33)
[2021-12-17 07:42] VITALS: BP 136/82; PULSE 66; RESP 18; TEMP 36.4; O2SAT 98
== END ==
PROVIDERS: PCP Family Medicine; Visit Provider Internal Medicine
DX: J45.50 Severe persistent asthma, uncomplicated (principal); J44.9 Chronic obstructive pulmonary disease, unspecified
CPT/HCPCS: 96372; J2357

== ENCOUNTER → 2021-12-31 07:21 | Day surgery (SDC) | payer MEDICAID, SELFPAY ==
[2021-12-31] MEDS: omalizumab 150 mg/mL SYR SUBCUT ×2 (07:28)
[2021-12-31 07:35] VITALS: BP 143/80; PULSE 74; RESP 18; TEMP 35.9; O2SAT 98
== END ==
PROVIDERS: PCP Family Medicine; Visit Provider Internal Medicine
DX: J45.50 Severe persistent asthma, uncomplicated (principal); J44.9 Chronic obstructive pulmonary disease, unspecified
CPT/HCPCS: 96372; J2357

== ENCOUNTER → 2022-01-14 07:26 | Day surgery (SDC) | payer MEDICAID, SELFPAY ==
[2022-01-14 07:30] VITALS: BP 157/72; PULSE 66; RESP 18; TEMP 35.7; O2SAT 97
[2022-01-14] MEDS: omalizumab 150 mg/mL SYR SUBCUT ×2 (07:34)
== END ==
PROVIDERS: PCP Family Medicine; Visit Provider Internal Medicine
DX: J45.50 Severe persistent asthma, uncomplicated (principal); J44.9 Chronic obstructive pulmonary disease, unspecified
CPT/HCPCS: 96372; J2357

== ENCOUNTER → 2022-01-28 07:14 | Day surgery (SDC) | payer MEDICAID, SELFPAY ==
[2022-01-28] MEDS: omalizumab 150 mg/mL SYR SUBCUT ×2 (07:21→07:22)
[2022-01-28 07:28] VITALS: BP 166/87; PULSE 73; RESP 18; TEMP 36.1; O2SAT 97
== END ==
PROVIDERS: PCP Family Medicine; Visit Provider Internal Medicine
DX: J45.50 Severe persistent asthma, uncomplicated (principal); J44.9 Chronic obstructive pulmonary disease, unspecified
CPT/HCPCS: 96372; J2357

== ENCOUNTER → 2022-02-09 07:17 | Day surgery (SDC) | payer MEDICAID, SELFPAY ==
[2022-02-09 07:23] VITALS: BP 150/74; PULSE 69; RESP 18; TEMP 36.7; O2SAT 97
[2022-02-09] MEDS: omalizumab 150 mg/mL SYR SUBCUT ×2 (07:25)
== END ==
PROVIDERS: PCP Family Medicine; Visit Provider Internal Medicine
DX: J45.50 Severe persistent asthma, uncomplicated (principal); J44.9 Chronic obstructive pulmonary disease, unspecified
CPT/HCPCS: 96372; J2357

== ENCOUNTER → 2022-02-25 07:23 | Day surgery (SDC) | payer MEDICAID, SELFPAY ==
[2022-02-25] MEDS: omalizumab 150 mg/mL SYR SUBCUT ×2 (07:32)
[2022-02-25 07:40] VITALS: BP 152/83; PULSE 70; RESP 18; TEMP 36.1; O2SAT 97
== END ==
PROVIDERS: PCP Family Medicine; Visit Provider Internal Medicine
DX: J45.50 Severe persistent asthma, uncomplicated (principal); J44.9 Chronic obstructive pulmonary disease, unspecified
CPT/HCPCS: 96372; J2357

== ENCOUNTER → 2022-03-10 07:27 | Day surgery (SDC) | payer MEDICAID, SELFPAY ==
[2022-03-10 07:34] VITALS: BP 152/83; PULSE 81; RESP 18; TEMP 36.4; O2SAT 98
[2022-03-10] MEDS: omalizumab 150 mg/mL SYR SUBCUT ×2 (07:39→07:40)
== END ==
PROVIDERS: PCP Family Medicine; Visit Provider Internal Medicine
DX: J45.50 Severe persistent asthma, uncomplicated (principal); J44.9 Chronic obstructive pulmonary disease, unspecified
CPT/HCPCS: 96372; J2357

== ENCOUNTER → 2022-03-25 07:17 | Day surgery (SDC) | payer MEDICAID, SELFPAY ==
[2022-03-25 07:20] VITALS: BP 154/80; PULSE 72; RESP 18; TEMP 36; O2SAT 98
[2022-03-25] MEDS: omalizumab 150 mg/mL SYR SUBCUT ×2 (07:25)
== END ==
PROVIDERS: PCP Family Medicine; Visit Provider Internal Medicine
DX: J45.50 Severe persistent asthma, uncomplicated (principal); J44.9 Chronic obstructive pulmonary disease, unspecified
CPT/HCPCS: 96372; J2357

== ENCOUNTER → 2022-04-08 07:27 | Day surgery (SDC) | payer MEDICAID, SELFPAY ==
[2022-04-08 07:31] VITALS: BP 171/85; PULSE 79; RESP 18; TEMP 36.1; O2SAT 95
[2022-04-08] MEDS: omalizumab 150 mg/mL SYR SUBCUT ×2 (07:39)
== END ==
PROVIDERS: PCP Family Medicine; Visit Provider Internal Medicine
DX: J45.50 Severe persistent asthma, uncomplicated (principal); J44.9 Chronic obstructive pulmonary disease, unspecified
CPT/HCPCS: 96372; J2357

== ENCOUNTER → 2022-04-22 07:22 | Day surgery (SDC) | payer BC, MEDICAID, SELFPAY ==
[2022-04-22] MEDS: omalizumab 150 mg/mL SYR SUBCUT ×2 (07:26→07:27)
[2022-04-22 07:40] VITALS: BP 120/84; PULSE 77; RESP 18; TEMP 36.6; O2SAT 99
== END ==
PROVIDERS: PCP Family Medicine; Visit Provider Internal Medicine
DX: J45.50 Severe persistent asthma, uncomplicated (principal); J44.9 Chronic obstructive pulmonary disease, unspecified
CPT/HCPCS: 96372; J2357

== ENCOUNTER → 2022-05-06 07:28 | Day surgery (SDC) | payer MEDICAID, SELFPAY ==
[2022-05-06] MEDS: omalizumab 150 mg/mL SYR SUBCUT ×2 (07:36)
[2022-05-06 07:45] VITALS: BP 147/78; PULSE 77; RESP 18; TEMP 36.6; O2SAT 99
== END ==
PROVIDERS: PCP Family Medicine; Visit Provider Internal Medicine
DX: J45.50 Severe persistent asthma, uncomplicated (principal); J44.9 Chronic obstructive pulmonary disease, unspecified
CPT/HCPCS: 96372; J2357

== ENCOUNTER → 2022-05-20 07:18 | Day surgery (SDC) | payer MEDICAID, SELFPAY ==
[2022-05-20 07:29] VITALS: BP 124/78; PULSE 85; RESP 18; TEMP 37; O2SAT 95
[2022-05-20] MEDS: omalizumab 150 mg/mL SYR SUBCUT ×2 (07:37)
== END ==
PROVIDERS: PCP Family Medicine; Visit Provider Internal Medicine
DX: J45.50 Severe persistent asthma, uncomplicated (principal); J44.9 Chronic obstructive pulmonary disease, unspecified
CPT/HCPCS: 96372; J2357

== ENCOUNTER → 2022-06-03 07:32 | Day surgery (SDC) | payer MEDICAID, SELFPAY ==
[2022-06-03 07:45] VITALS: BP 125/74; PULSE 78; RESP 18; TEMP 36.6; O2SAT 97
[2022-06-03] MEDS: omalizumab 150 mg/mL SYR SUBCUT ×2 (07:49)
== END ==
PROVIDERS: PCP Family Medicine; Visit Provider Internal Medicine
DX: J45.50 Severe persistent asthma, uncomplicated (principal); J44.9 Chronic obstructive pulmonary disease, unspecified
CPT/HCPCS: 96372; J2357

== ENCOUNTER → 2022-06-17 07:47 | Day surgery (SDC) | payer BC, MEDICAID, SELFPAY ==
[2022-06-17] MEDS: omalizumab 150 mg/mL SYR SUBCUT ×2 (07:49)
[2022-06-17 07:54] VITALS: BP 131/85; PULSE 68; RESP 18; TEMP 36.9; O2SAT 98
== END ==
PROVIDERS: PCP Family Medicine; Visit Provider Internal Medicine
DX: J45.50 Severe persistent asthma, uncomplicated (principal); J44.9 Chronic obstructive pulmonary disease, unspecified
CPT/HCPCS: 96372; J2357

== ENCOUNTER → 2022-07-01 07:16 | Day surgery (SDC) | payer BC, MEDICAID, SELFPAY ==
[2022-07-01 07:25] VITALS: BP 126/74; PULSE 79; RESP 18; TEMP 385; TEMP 725; O2SAT 98
[2022-07-01] MEDS: omalizumab 150 mg/mL SYR SUBCUT ×2 (07:39→07:40)
== END ==
PROVIDERS: PCP Family Medicine; Visit Provider Internal Medicine
DX: J45.50 Severe persistent asthma, uncomplicated (principal); J44.9 Chronic obstructive pulmonary disease, unspecified
CPT/HCPCS: 96372; J2357

== ENCOUNTER → 2022-07-15 07:33 | Day surgery (SDC) | payer BC, MEDICAID, SELFPAY ==
[2022-07-15] MEDS: omalizumab 150 mg/mL SYR SUBCUT ×2 (07:37)
[2022-07-15 07:38] VITALS: BP 153/90; PULSE 71; RESP 18; TEMP 36.7; O2SAT 98
== END ==
PROVIDERS: PCP Family Medicine; Visit Provider Internal Medicine
DX: J45.50 Severe persistent asthma, uncomplicated (principal); Z79.899 Other long term (current) drug therapy
CPT/HCPCS: 96372; J2357

== ENCOUNTER → 2022-07-29 07:38 | Day surgery (SDC) | payer BC, MEDICAID, SELFPAY ==
[2022-07-29] MEDS: omalizumab 150 mg/mL SYR SUBCUT ×2 (07:43)
[2022-07-29 07:45] VITALS: BP 148/87; PULSE 77; RESP 18; TEMP 37; O2SAT 96
== END ==
PROVIDERS: PCP Family Medicine; Visit Provider Internal Medicine
DX: J45.50 Severe persistent asthma, uncomplicated (principal); J44.9 Chronic obstructive pulmonary disease, unspecified
CPT/HCPCS: 96372; J2357

== ENCOUNTER → 2022-08-12 07:23 | Day surgery (SDC) | payer MEDICAID, SELFPAY ==
[2022-08-12 07:30] VITALS: BP 155/92; PULSE 68; RESP 18; TEMP 36.8; O2SAT 97
[2022-08-12] MEDS: omalizumab 150 mg/mL SYR SUBCUT ×2 (07:36→07:37)
== END ==
LOC: GILAB 07:24
PROVIDERS: PCP Family Medicine; Visit Provider Internal Medicine
DX: J45.50 Severe persistent asthma, uncomplicated (principal); Z79.899 Other long term (current) drug therapy
CPT/HCPCS: 96372; J2357

== ENCOUNTER → 2022-08-26 07:40 | Day surgery (SDC) | payer MEDICAID, SELFPAY ==
[2022-08-26] MEDS: omalizumab 150 mg/mL SYR SUBCUT ×2 (07:48)
[2022-08-26 07:56] VITALS: BP 172/79; PULSE 73; RESP 18; TEMP 36.5; O2SAT 98
== END ==
LOC: GILAB 07:43
PROVIDERS: PCP Family Medicine; Visit Provider Internal Medicine
DX: J45.50 Severe persistent asthma, uncomplicated (principal); Z79.899 Other long term (current) drug therapy
CPT/HCPCS: 96372; J2357

== ENCOUNTER → 2022-09-09 07:26 | Day surgery (SDC) | payer BC, MEDICAID, SELFPAY ==
[2022-09-09 07:30] VITALS: BP 142/85; PULSE 72; RESP 18; TEMP 36.6; O2SAT 96
[2022-09-09] MEDS: omalizumab 150 mg/mL SYR SUBCUT ×2 (07:35)
== END ==
PROVIDERS: PCP Family Medicine; Visit Provider Internal Medicine
DX: J45.50 Severe persistent asthma, uncomplicated (principal); Z79.899 Other long term (current) drug therapy
CPT/HCPCS: 96372; J2357

== ENCOUNTER → 2022-10-06 11:38 | Day surgery (SDC) | payer BC, MEDICAID, SELFPAY ==
[2022-10-06 11:35] VITALS: BP 161/91; PULSE 68; RESP 18; TEMP 36.4; O2SAT 96; BMI 41.9
[2022-10-06] MEDS: omalizumab 150 mg/mL SYR SUBCUT ×2 (11:44)
== END ==
LOC: GILAB 11:38
PROVIDERS: PCP Family Medicine; Visit Provider Internal Medicine
DX: J45.50 Severe persistent asthma, uncomplicated (principal); Z79.899 Other long term (current) drug therapy
CPT/HCPCS: 96372; J2357

== ENCOUNTER → 2022-10-21 07:23 | Day surgery (SDC) | payer BC, MEDICAID, SELFPAY ==
[2022-10-21 07:30] VITALS: BP 178/86; PULSE 72; RESP 18; TEMP 36.9; O2SAT 98
[2022-10-21] MEDS: omalizumab 150 mg/mL SYR SUBCUT ×2 (07:33)
== END ==
PROVIDERS: PCP Family Medicine; Visit Provider Internal Medicine
DX: J45.50 Severe persistent asthma, uncomplicated (principal); Z79.620 Long term (current) use of immunosuppressive biologic
CPT/HCPCS: 96372; J2357

== ENCOUNTER 2024-08-11 16:48 | Emergency (ER) | payer BC, MEDICAID, SELFPAY ==
[2024-08-11 17:02] VITALS: BP 151/81; PULSE 70; TEMP 37.2; O2SAT 100; BMI 43.0
--- NOTE | 2024-08-11 18:26 | ED_ITS ---
HPI - Eye Problem General: Chief complaint: Eye Problems Stated complaint: vision issues in L eye Time Seen by Provider: 08/11/24 17:33 History of Present Illness: 49-year-old female presents to the ED wi th complaints of left eye visual disturbances that started earlier in the week. Patient initially experienced flashes of light in the left eye, which progressed to constant flashing yesterday. She subsequently developed a 'squiggle' that has moved from the peripheral vision to the center of her visual field. She describes the visual phenomena as similar to 'spider webs' with associated dark patches. Patient reports mild blurriness in the left eye, which she describes as a 'hazy' sensation similar to her allergy symptoms. Denies complete vision loss or curtain-like vision changes. No associated eye pain, headache, or other symptoms. Patient has not sought medical attention for this complaint prior to this visit. She uses reading glasses only and has not had an eye examination in several years. Related Data Home Medications ?Medication ?Instructions ?Recorded ?Confirmed albuterol sulfate 90 mcg/actuation 2 puff inhalation A S DIRECTED PRN 04/04/19 10/21/22 aerosol inhaler (ProAir HFA) Shortness Of Breath Or Wh eezing ipratropium 20 mcg-albuterol 100 2 puff inhalation 6XD PRN 04/04/19 10/21/22 mcg/actuation mist for inhalation Shortness Of Breath Or Wheezing (Combivent Respimat) epinephrine 0.3 mg/0.3 mL 0.3 mg IM Q10M PRN Anaphylax is 06/05/19 10/21/22 injection, auto-injector (EpiPen) omalizumab 150 mg/mL subcutaneous 300 mg SUBCUT DIR ECTED 06/05/19 10/21/22 syringe (Xolair) fluticasone 500 mcg-salmeterol 50 1 inh inhalation BID 05/20/22 10/21/22 mcg/dose blistr powdr for inhalation (Advair Diskus) Previous Rx's ?Medication ?Instructions ?Recorded diclofenac sodium 1 % topical gel 2 g topical QID #100 grams 02/04/20 Allergies Allergy/AdvReac Type Severity Reaction Status Date / Time No Known Allergies Allergy Verified 08/11/24 17:07 [facility] ED PFSH: Medical History Asthma Connective tissue disease High risk medication use Immunization counseling Inflammatory arthritis Positive LAVON (antinuclear antibody) Positive double stranded DNA antibody test Raynaud's disease without gangrene SLE (systemic lupus erythematosus) Surgical History History of tubal ligation Family History Other Arthritis Diabetes Hypertension Denies family history of Rheumatoid arthritis Lupus Stroke Social History Smoking and tobacco/nicotine status: current every day tobacco/nicotine user Quit status (tobacco/nicotine): quit date established Alcohol intake: current Alcohol intake frequency: holidays/special occasions only Substance/Drug Use: never Physical Exam Const: COMMON NORMALS: no acute distress, average body habitus, alert and well nourished GENERAL APPEARANCE: cooperative ORIENTATION/CONSCIOUSNESS: Yes awake HENMT: COMMON NORMALS: normocephalic and atraumatic HEAD & SCALP: normocephalic and atraumatic Eye: COMMON NORMALS: conjunctivae normal CONJUNCTIVA: Yes conjunctivae normal Neck/C-Spine: GENERAL: Yes normal visual inspection Resp: COMMON NORMALS: normal respiratory effort, No retractions and No use of accessory muscles Cardio: COMMON NORMALS: regular rhythm and Peripheral pulses 2+ throughout RHYTHM: regular rhythm PERIPHERAL PULSES: Peripheral pulses 2+ throughout GI: COMMON NORMALS: Soft to palpation and non-tender PALPATION: Yes Soft to palpation Extremity: COMMON NORMALS: full ROM and no pedal edema Neuro: COMMON NORMALS: no focal motor deficits SENSORIUM/ORIENTATION: Yes alert Skin: COMMON NORMALS: no rashes or lesions noted GENERAL SKIN EXAM: no rashes or lesions noted Course Vital Signs: Vital signs: Vital Signs Temperature 98.9 F 08/11/24 17:02 Pulse Rate 70 08/11/24 17:02 Blood Pressure 151/81 08/11/24 17:02 Pulse Oximetry 100 08/11/24 17:02 Oxygen Delivery Me thod Room Air 08/11/24 17:02 MDM - Eye Problem Medical Decision Making ROS: Constitutional: Denies fever, chills HEENT: Positive for left eye flashes and floaters, blurred vision. Denies eye pain, complete vision loss Neurological: Denies headache All other systems reviewed and negative MEDICATIONS AND ALLERGIES: Medications: None reported Allergies: No known drug allergies PAST HISTORICAL DATA: PMH: Severe asthma PSH: None reported Family History: Mother with cataracts Social History: No tobacco use reported VITAL SIGNS: Visual acuity: 20/20 PHYSICAL EXAM: General: Alert, non-toxic appearing, in no apparent distress HEENT: Head normocephalic and atraumatic. Mucous membranes moist. Pupils reactive but constrict significantly with direct illumination. No obvious retinal abnormalities noted with limited exam Neck: Supple Respiratory: No increased work of breathing, no wheezing Cardiac: Regular rate and rhythm, 2+ pulses in all extremities Abdomen: Soft, non-distended, no rebound or guarding Neuro: Cranial nerves grossly intact, no focal motor or sensory deficits noted Eyes: Extraocular movements intact INITIAL IMPRESSION AND PLAN: Given the history and presentation, the primary working diagnosis is posterior vitreous detachment vs retinal tear/detachment. Additional considerations include vitreous hemorrhage and vascular occlusion. Plan: 1. Ophthalmology consultation 2. Visual acuity testing 3. Basic eye examination TEST INTERPRETATIONS: Visual acuity testin/20 PROCEDURES: No procedures performed CONSIDERED BUT NOT PERFORMED: Emergency transfer to ophthalmology center CONSIDERED but NOT DONE due to non- emergent presentation and ability to arrange prompt outpatient follow-up FINAL IMPRESSION: Based on all the above, my clinical impression is most compatible with posterior vitreous detachment versus retinal pathology requiring further ophthalmologic evaluation. The clinical picture is not currently suggestive of acute retinal detachment or central retinal artery occlusion given preserved vision and absence of complete visual field defects. Although other conditions were also considered, they were deemed unlikely based on the clinical information available. CLINICAL DISPOSITION: The patient's current condition is stable in my estimation and the most appropriate and indicated disposition at this time is discharge home with urgent ophthalmology follow-up. Rationale for Discharge: Patient is safe for discharge given stable vital signs, preserved vision, absence of complete visual field defects, and arrangement of prompt ophthalmology follow-up. Patient demonstrates good understanding of return precautions and has reliable follow-up arranged with Dr. Delgado Monday at 8 AM. RISK STRATIFICATION AND CLINICAL DECISION RULES APPLIED: No formal clinical decision rules were applicable to this presentation. Risk stratification was based on presence/absence of high-risk features for retinal detachment including curtain-like vision loss, complete vision loss, or signs of central retinal artery occlusion. CASE SUMMARY: 49-year-old female presented with several days of left eye flashes progressing to floaters and visual disturbance. Examination revealed preserved visual acuity with no evidence of acute retinal detachment or vascular occlusion. After discussion with ophthalmology, patient was arranged for urgent follow-up tomorrow morning and discharged with appropriate return precautions. No radiology studies performed this visit Discharge Plan Discharge Patient Disposition: Home Clinical Impression: Vision blurred, Vision abnormalities Condition: Stable Prescriptions: No Action diclofenac sodium 1 % gel 2 g topical QID Qty: 100 2RF Rx Instructions: apply to affected area as needed Xolair 150 mg/mL syringe 300 mg SUBCUT DIRECTED Rx Instructions: every two weeks epinephrine [EpiPen] 0.3 mg/0.3 mL auto-injector 0.3 mg IM Q10M PRN (Reason: Anaphylaxis) albuterol sulfate [ProAir HFA] 90 mcg/actuation Hfa Aerosol Inhaler 2 puff INHALATION DIRECTED PRN (Reason: Shortness Of Breath Or Wheezing) Combivent Respimat 20-100 mcg/actuation Mist 2 puff INHALATION 6XD PRN (Reason: Shortness Of Breath Or Wheezing) fluticasone propion-salmeterol [Advair Diskus] 500-50 mcg/dose blister with device 1 inh INHALATION BID Discharge Orders: Discharge ED (Routine); Ordered 08/11/24 Ordered By: Víctor Naidu Referrals: [facility] [Outside] Referral Note: To see at 0800 on 08/13/24 Jefe Lockhart [Primary Care Provider, Family Practice] Patient Instructions: Blurred Vision (ED), Opioid Safety, Pain Management Activity Restrictions/Additional Instructions: You have been evaluated for left eye visual changes. While your examination today does not show signs of immediate emergency, you need prompt follow-up with an college specialist. An appointment has been arranged with Dr. Delgado Monday at 8 AM. He says to show up at his office at 0800 and they will work you into clinic. Return to the Emergency Department immediately if you experience: complete loss of vision, curtain-like vision loss, severe eye pain, or significant worsening of your symptoms. Keep your head elevated and avoid strenuous activity until evaluated by the eye doctor. Print Language: Mozambican Coding Level of Care Code ED Supervisor [employer] for Sulema Valencia
[2024-08-11 18:39] VITALS: BP 150/80; PULSE 65; O2SAT 100
--- NOTE | 2024-08-13 08:19 | DCPLANNER ---
referral sent to [facility]
== END 2024-08-11 18:40 | disposition home or self-care (01) ==
PROVIDERS: Emergency Provider Student in an Organized Health Care Education/Training Program; PCP Family Medicine
DX: H53.8 Other visual disturbances (principal)
CPT/HCPCS: 99282